=== PATIENT | male | born 1970 | race Caucasian/White ===

== ENCOUNTER 2017-12-05 10:08 | Outpatient (CLI) | payer OTHER | END 2017-12-05 10:09 | disposition home or self-care (01) | LOC: CTENTCT 10:08 | PROVIDERS: ATTEND Otolaryngology Plastic Surgery within the Head & Neck | DX: J01.91 Acute recurrent sinusitis, unspecified (principal) | CPT/HCPCS: 70486 ==

== ENCOUNTER 2017-12-21 07:14 | Day surgery (SDC) | payer OTHER ==
[2017-12-20 13:20] VITALS: BMI 26.5
[2017-12-21] MEDS ORDERED: Oxymetazoline HCl 0.05% ( 15 ML ) ONE (08:22)
[2017-12-21] MEDS ORDERED: Ondansetron HCl/PF 4 MG/2 ML Vial ONE ×2 (09:09→12:10)
[2017-12-21] MEDS ORDERED: Midazolam HCl 2 mg/2 ml Vial ONE (09:09)
[2017-12-21] MEDS ORDERED: Fentanyl 100 MCG/2 ML VIAL ONE ×2 (09:09→10:07)
[2017-12-21] MEDS ORDERED: Bacitracin Zinc Ointment 30 gm TUBE ONE (09:14)
[2017-12-21] MEDS ORDERED: Lidocaine 1% w/Epinephrine 1:200K 30 ML VIAL ONE (09:14)
[2017-12-21] MEDS ORDERED: Dexamethasone 20 MG/5 ML VIAL ONE (12:10)
[2017-12-21] MEDS ORDERED: Succinylcholine Chloride 20 MG/ML 10 ml SYRINGE FS ONE (12:10)
[2017-12-21] MEDS ORDERED: Lidocaine 1% PF 5 ML VIAL ONE (12:10)
[2017-12-21] MEDS ORDERED: PROPOFOL 200 MG/20 ML VIAL ONE (12:10)
--- NOTE | 2017-12-21 20:34 | EKG ---
Test Reason : PREOP Blood Pressure : / mmHG Vent. Rate : 056 BPM Atrial Rate : 056 BPM P-R Int : 180 ms QRS Dur : 104 ms QT Int : 420 ms P-R-T Axes : 047 054 046 degrees QTc Int : 405 ms Sinus bradycardia Nonspecific ST abnormality Abnormal ECG No previous ECGs available Confirmed by DR. Dani TIDWELL MD ([id number]) on 12/21/2017 8:33:55 PM Referred By: ALAN Confirmed By:DR. Dani TIDWELL MD
--- NOTE | 2017-12-22 11:51 | OP ---
PREOPERATIVE DIAGNOSES: 1. Recurrent acute rhinosinusitis. 2. Nasal septal deviation. 3. Bilateral manolo bullosa. 4. Chronic rhinosinusitis. POSTOPERATIVE DIAGNOSES: 1. Recurrent acute rhinosinusitis. 2. Nasal septal deviation. 3. Bilateral manolo bullosa. 4. Chronic rhinosinusitis. PROCEDURES: 1. Bilateral endoscopic sinus surgery, total ethmoidectomies. 2. Bilateral endoscopic sinus surgery, maxillary antrostomies. 3. Bilateral endoscopic sinus surgery, frontal sinusotomies. 4. Bilateral endoscopic sinus surgery, sphenoidotomies. 5. Nasal septoplasty. 6. Bilateral inferior turbinate submucosal resection. SURGEON: Ezra Meyers M.D. ESTIMATED BLOOD LOSS: 50 mL COMPLICATIONS: None. ANESTHESIA: GETA. PROCEDURE IN DETAIL: Patient was taken to the operating room and placed supine on the table. General endotracheal anesthesia was obtained by the Anesthesia staff. Tube was secured in the left lower lip. Patient was then placed in the beach chair position, and Afrin pledgets were p laced in the nasal cavity. Injections of 1% lidocaine with 1:100,000 epinephrine were made into the [place] septum as well as the inferior turbinates. Patient was then prepped and draped in standard surgi omer fashion for nasal surgery. Following this, the Afrin pledgets were removed. A [place] incision wa s made on the left nasal septum. Submucoperichondrial dissection was performed. The deviated portions of the septum included portions of the cartilage and the bony septum. These isolated areas were kali jc using three cutting rongeurs. There was noted to be a large dorsal and caudal strut, left intact for support of the nose. The mucoperichondrial flaps were then reapproximated using a 4-0 gut stitch. Any straight pieces of cartilage were crushed prior to this and placed between the mucoperichondrial flaps. Following this, the inferior turbinates were then punctured with a submucosal coblation wand, and submucosal coblations were performed of multiple areas of the inferior portion of the anterior i nferior turbinate. Please note that the microdebrider was used to submucosally resect the anterior inferior portions of the inferior turbinates. Following this, the inferior turbinates were laterally fractured with a Wallace er elevator. Following this, the 0 degree scope was advanced in the middle meatus and middle turbina sharon were gently medialized using a [place] elevator and uncinate process was then anteriorly fractured with the ball-ended probe and then the uncinate was removed bilaterally using this upbiting [place] forceps and the straight microdebrider. Following this, the ball-ended probe was then used to gentl y palpate and identify the natural maxillary sinus ostia. This ostia was then widened using the curv ed microdebrider bilaterally. Following this, the ethmoidal bulla was identified and was punctured o n its medial and inferior aspect bilaterally and was removed using the microdebrider and upbiting [place] forceps. Following this, the grand lamella was identified and was punctured into the posterio r ethmoidal cells. Working from posterior to anterior, the ethmoidal cells were opened in a mucosal- sparing technique. Following this, the sphenoid sinus was identified staying just medial to the supe rior turbinate and the sphenoidotomies were clamped using Guerra tip suction bilaterally and then wi dened using the microdebrider bilaterally on the medial and inferior direction. Following this, 45-d egree scope and the 40-degree microdebrider blade was then used to further open the frontal recess ce lls as well as frontal as well as identify the frontal sinus ostia, which was then widened with the m icrodebrider. Following this, the nasal cavity was irrigated. MeroPacks were placed. Tong splints were placed and secured. The oral cavity was then gently retracted. The excessively long uvula was then trimmed flush with the soft palate ensuring adequate length of the palate to the posterior phar yngeal wall and mucosal edges were then approximated using a 3-0 chromic gut stitch. The patient suzette erated the procedure well.
== END 2017-12-21 12:28 | disposition home or self-care (01) ==
LOC: SDC 07:14
PROVIDERS: ATTEND Otolaryngology Plastic Surgery within the Head & Neck
PROC: 09TU8ZZ Resection of Right Ethmoid Sinus, Via Natural or Artificial Opening Endoscopic (ICD-10-PCS; principal; 2017-12-21)
PROC: 09BM0ZZ Excision of Nasal Septum, Open Approach (ICD-10-PCS; principal; 2017-12-21)
PROC: 099W8ZZ Drainage of Right Sphenoid Sinus, Via Natural or Artificial Opening Endoscopic (ICD-10-PCS; principal; 2017-12-21)
PROC: 099Q8ZZ Drainage of Right Maxillary Sinus, Via Natural or Artificial Opening Endoscopic (ICD-10-PCS; principal; 2017-12-21)
PROC: 099S8ZZ Drainage of Right Frontal Sinus, Via Natural or Artificial Opening Endoscopic (ICD-10-PCS; principal; 2017-12-21)
PROC: 09TV8ZZ Resection of Left Ethmoid Sinus, Via Natural or Artificial Opening Endoscopic (ICD-10-PCS; principal; 2017-12-21)
PROC: 099T8ZZ Drainage of Left Frontal Sinus, Via Natural or Artificial Opening Endoscopic (ICD-10-PCS; principal; 2017-12-21)
PROC: 099X8ZZ Drainage of Left Sphenoid Sinus, Via Natural or Artificial Opening Endoscopic (ICD-10-PCS; principal; 2017-12-21)
PROC: 099R8ZZ Drainage of Left Maxillary Sinus, Via Natural or Artificial Opening Endoscopic (ICD-10-PCS; principal; 2017-12-21)
DX: J01.81 Other acute recurrent sinusitis (principal); J32.8 Other chronic sinusitis; J34.2 Deviated nasal septum; J34.89 Other specified disorders of nose and nasal sinuses; G47.33 Obstructive sleep apnea (adult) (pediatric); K13.79 Other lesions of oral mucosa; J34.3 Hypertrophy of nasal turbinates
CPT/HCPCS: 93005; 93010; J2250; J2405; J3010

== ENCOUNTER 2023-05-24 11:58 | Inpatient (IN) | payer BC, OTHER ==
[2023-05-24] MEDS ORDERED: Ipratropium/Albuterol 3 ML NEB ONE ×3 (12:47→13:52)
[2023-05-24] MEDS ORDERED: predniSONE 20 MG TAB ONE (12:59)
[2023-05-24] MEDS ORDERED: Dexamethasone 10 MG/ML VIAL ONE (13:42)
[2023-05-24] MEDS ORDERED: Albuterol 2.5 MG/0.5 ML NEB ONE (13:52)
[2023-05-24 13:59] LABS: #Basophils 0.1 thou/uL (0.0-0.2); #Eosinphils 1.3 thou/uL (0.0-0.7); #Monocytes 0.6 thou/uL (0.11-0.59); #Neutrophils 5.3 thou/uL (1.40-6.50); %Basophils 0.6 % (0.0-1.0); %Eosinophils 14.3 % (0.0-10.0); %Lymphocytes 18.7 % (21.0-51.0); %Monocytes 6.3 % (0.0-10.0); %Neutrophils 59.8 % (42.0-75.0); Hemoglobin 18.2 g/dL (14.0-18.0); Mean Corpuscular HGB CONC 33.1 g/dL (32.0-36.0); Mean Corpuscular Hemoglobin 29.5 pg (27.0-31.0); Mean Corpuscular Volume 89.1 fl (78.0-98.0); Mean Platelet Volume 9.9 fL (7.4-10.4); Platelet Count 236 10x3/uL (130-400); RBC Distribution Width 12.9 % (11.5-14.5); Red Blood Cell (RBC) Count 6.17 mill/uL (4.70-6.10); White Blood Cell (WBC) Count 8.8 10x3/uL (4.8-10.8)
[2023-05-24] MEDS ORDERED: Magnesium Sulfate 1 GM, Admixture Fee 1 EACH in Sodium Chloride 0.9% 100 ML IVPB SCH (14:00)
[2023-05-24 14:26] LABS: ALT (SGPT) 24 U/L (8-55); AST (SGOT) 17 U/L (5-34); Albumin 5.5 g/dL (3.5-5.0); Alkaline Phosphatase 79 U/L (40-110); Anion Gap 15 mmol/L (10-20); BUN (Urea Nitrogen) 14 mg/dL (8.4-25.7); Calc. Creatinine Clearance 0 mL/min (70-130); Calcium 10.3 mg/dL (7.8-10.44); Carbon Dioxide 27 mmol/L (22-29); Chloride 106 mmol/L (98-107); Estimated GFR 73; Globulin 2.7 g/dL (2.4-3.5); Glucose 125 mg/dL (70-105); Potassium 4.1 mmol/L (3.5-5.1); Protein, Total 8.2 g/dL (6.0-8.3); Sodium 144 mmol/L (136-145)
[2023-05-24 14:31] LABS: Troponin I 0.011 ng/mL (< 0.028)
[2023-05-24] MEDS ORDERED: EPINEPHrine 1 MG/ML AMP ONE (14:39)
[2023-05-24] MEDS ORDERED: Ketamine In 0.9 % NaCl 50 MG/5 ML SYRINGE ONE ×2 (14:46→14:51)
[2023-05-24] MEDS ORDERED: diphenhydrAMINE 50 MG/ML VIAL ONE (14:55)
[2023-05-24] MEDS ORDERED: Propofol 1,000 MG/100 ML VIAL IV ONE (15:15)
[2023-05-24 15:51] LABS: Bilirubin Negative (Negative); Blood, Urine Negative (Negative); CAUTI Indications for Culture Fever or rigors; Clarity Clear (Clear); Glucose, Urine (Dipstick) Normal (Negative); Ketone, Urine 10 mg/dL (Negative); Leukocyte Negative Leu/uL (Negative); Nitrite Negative (Negative); Protein, Urine (Dipstick) Negative (Neg-Trace); RBC/HPF 0-3 HPF (0-3); Specific Gravity, Urine 1.025 (1.002-1.036); Squamous Epithelial 0-3 HPF (0-3); Urobilinogen Normal mg/dL (Less than 2); WBC/HPF 0-3 HPF (0-3)
[2023-05-24 15:57] LABS: Analyzer IN Cardio ER; Base Excess (BEa) -8.3 mEq/L (-2.0 to +3.0); CO2 Tension 57.6 mmHg (35.0-45.0); Calcium, Ionized (arterial) 1.22 mmol/L (1.12-1.30); Carboxyhemoglobin (COHb) 0.2 gm% (0.0-3.0); Hematocrit-ABG 51 % (42.0-52.0); Hemoglobin (Hb) 17.3 g/dL (14.0-18.0); O2 Tension (PaO2), arterial 495.8 mmHg (80.0-100.0); Potassium - ABG Lab 4.01 mmol/L (3.70-5.30)
[2023-05-24 15:58] LABS: Bacteria/HPF 1+ HPF (None Seen)
[2023-05-24 15:59] LABS: Urine Culture Reflex No No
[2023-05-24 16:04] LABS: pH, Arterial 7.179 (7.35-7.45)
[2023-05-24 16:05] LABS: Puncture Site RBA
[2023-05-24] MEDS ORDERED: fentaNYL 50 mcg/mL 1 mL Vial ONE ×2 (16:19→16:33)
[2023-05-24] MEDS ORDERED: Acetaminophen 650 MG Suppository PR PRN (16:36)
[2023-05-24] MEDS ORDERED: Ventilator Sedation Protocol 1 EACH FS SCH (16:36)
[2023-05-24] MEDS ORDERED: Acetaminophen 325 MG/10.15 ML UDCUP PO PRN (16:39)
[2023-05-24] MEDS ORDERED: Electrolyte Replacement Protocol 1 EACH IVPB SCH (16:39)
[2023-05-24] MEDS ORDERED: Fentanyl CADD 100 ML IV SCH ×2 (16:45→17:00)
[2023-05-24] MEDS ORDERED: Propofol BOLUS 1,000 MG/100 ML VIAL IV PRN (17:00)
[2023-05-24] MEDS ORDERED: Lorazepam 2 MG/ML VIAL SLOW IVP PRN (17:00)
[2023-05-24] MEDS ORDERED: Morphine 2 MG/ML VIAL SLOW IVP PRN (17:00)
[2023-05-24] MEDS ORDERED: Propofol 1,000 MG/100 ML VIAL IV PRN (17:00)
[2023-05-24] MEDS ORDERED: DISCONTINUE PREVIOUS NARCOTIC PAIN MEDICATIONS AND BENZODIAZEPINES FS SCH (17:00)
[2023-05-24] MEDS ORDERED: Fentanyl BOLUS 250 ML IVPB PRN (17:00)
[2023-05-24] MEDS ORDERED: Midazolam HCl 2 mg/2 ml Vial ONE (17:09)
[2023-05-24] MEDS ORDERED: Sterile Water 10 ML ONE ×2 (17:41→23:15)
[2023-05-24] MEDS ORDERED: Vecuronium 10 MG VIAL ONE (17:41)
[2023-05-24] MEDS: Vecuronium 10 MG VIAL IV PRN ×2 (17:42→23:20)
[2023-05-24 18:21] LABS: Troponin I Less than 0.010 ng/mL (< 0.028)
[2023-05-24] MEDS ORDERED: Ipratropium/Albuterol 3 ML NEB NEB SCH (18:30)
[2023-05-24] MEDS ORDERED: hydrALAZINE 20 MG/ML VIAL SLOW IVP PRN (18:36)
[2023-05-24] MEDS ORDERED: Sodium Chloride 0.9% 1,000 ML IV SCH (18:45)
[2023-05-24] MEDS: methylPREDNISolone Sod Succ 40 MG VIAL IVP SCH ×2 (19:13→23:27)
[2023-05-24 20:04] LABS: Troponin I Less than 0.010 ng/mL (< 0.028)
[2023-05-24] MEDS: Pantoprazole 40 MG VIAL IVP SCH (20:31)
[2023-05-24] MEDS ORDERED: Ipratropium/Albuterol 3 ML NEB NEB PRN (20:38)
[2023-05-24] MEDS ORDERED: Famotidine 20 MG TAB PO SCH (21:00)
[2023-05-24] MEDS ORDERED: Famotidine/PF 20 mg/2ml Vial SLOW IVP SCH (21:00)
[2023-05-24] MEDS: Sodium Chloride 0.9% 500 ML IV SCH ×2 (21:02→21:08)
[2023-05-24] MEDS: Sodium Chloride 0.9% 1,000 ML IV SCH ×2 (21:03→21:08)
[2023-05-24] MEDS ORDERED: Sodium Chloride 0.9% 500 ML IV SCH (21:45)
[2023-05-24] MEDS: Ipratropium/Albuterol 3 ML NEB NEB SCH (22:45)
[2023-05-25 00:09] LABS: Actual Bicarbonate (HCO3a) 19.2 mEq/L (22-28); Base Excess (BEa) -8.4 mEq/L (-2.0 to +3.0); CO2 Tension 47.2 mmHg (35.0-45.0); Calcium, Ionized (arterial) 1.21 mmol/L (1.12-1.30); Carboxyhemoglobin (COHb) 0.7 gm% (0.0-3.0); Hematocrit-ABG 44 % (42.0-52.0); O2 Tension (PaO2), arterial 98.9 mmHg (80.0-100.0); Puncture Site RR; pH, Arterial 7.227 (7.35-7.45)
[2023-05-25] MEDS: Ipratropium/Albuterol 3 ML NEB NEB SCH ×8 (02:02→23:07)
[2023-05-25] MEDS: methylPREDNISolone Sod Succ 40 MG VIAL IVP SCH ×3 (05:34→19:18)
[2023-05-25] MEDS: Sodium Chloride 0.9% 1,000 ML IV SCH ×2 (05:34→13:52)
[2023-05-25 06:35] LABS: #Monocytes 0.5 thou/uL (0.11-0.59); #Neutrophils 8.5 thou/uL (1.40-6.50); %Lymphocytes 4.7 % (21.0-51.0); %Monocytes 5.1 % (0.0-10.0); %Neutrophils 89.9 % (42.0-75.0); Hematocrit 46.9 % (42.0-52.0); Mean Corpuscular HGB CONC 32.2 g/dL (32.0-36.0); Mean Corpuscular Hemoglobin 29.3 pg (27.0-31.0); Mean Corpuscular Volume 91.1 fl (78.0-98.0); Mean Platelet Volume 10.1 fL (7.4-10.4); Platelet Count 177 10x3/uL (130-400); RBC Distribution Width 13.2 % (11.5-14.5); Red Blood Cell (RBC) Count 5.15 mill/uL (4.70-6.10); White Blood Cell (WBC) Count 9.4 10x3/uL (4.8-10.8)
[2023-05-25 06:51] LABS: Hemoglobin 15.1 g/dL (14.0-18.0)
[2023-05-25 07:19] LABS: ALT (SGPT) 17 U/L (8-55); AST (SGOT) 13 U/L (5-34); Albumin 4.3 g/dL (3.5-5.0); Alkaline Phosphatase 60 U/L (40-110); Anion Gap 13 mmol/L (10-20); BUN (Urea Nitrogen) 23 mg/dL (8.4-25.7); Bilirubin, Total 0.6 mg/dL (0.2-1.2); Calc. Creatinine Clearance 67 mL/min (70-130); Calcium 8.7 mg/dL (7.8-10.44); Carbon Dioxide 22 mmol/L (22-29); Chloride 106 mmol/L (98-107); Estimated GFR 60; Globulin 2.1 g/dL (2.4-3.5); Glucose 156 mg/dL (70-105); Magnesium 2.1 mg/dL (1.6-2.6); Potassium 5.1 mmol/L (3.5-5.1); Protein, Total 6.4 g/dL (6.0-8.3); Sodium 136 mmol/L (136-145)
[2023-05-25 08:29] LABS: Actual Bicarbonate (HCO3a) 23.1 mEq/L (22-28); Base Excess (BEa) -2.9 mEq/L (-2.0 to +3.0); Calcium, Ionized (arterial) 1.23 mmol/L (1.12-1.30); Carboxyhemoglobin (COHb) 0.7 gm% (0.0-3.0); Hematocrit-ABG 42 % (42.0-52.0); Hemoglobin (Hb) 14.3 g/dL (14.0-18.0); O2 Tension (PaO2), arterial 88.9 mmHg (80.0-100.0); Potassium - ABG Lab 4.76 mmol/L (3.70-5.30); pH, Arterial 7.329 (7.35-7.45)
[2023-05-25 08:30] LABS: Puncture Site RRA
[2023-05-25] MEDS: Pantoprazole 40 MG VIAL IVP SCH ×2 (09:42→20:01)
[2023-05-25] MEDS ORDERED: Piperacillin/Tazobactam 3.375 GM in Sodium Chloride 0.9% 100 ML IVPB SCH (11:15)
[2023-05-25] MEDS: Azithromycin 500 MG in Sodium Chloride 0.9% 250 ML 250 ML IVPB SCH (13:53)
[2023-05-25] MEDS: Piperacillin/Tazobactam 3.375 GM in Sodium Chloride 0.9% 100 ML IVPB SCH (17:20)
[2023-05-26] MEDS: Piperacillin/Tazobactam 3.375 GM in Sodium Chloride 0.9% 100 ML IVPB SCH ×3 (00:19→15:29)
[2023-05-26] MEDS: methylPREDNISolone Sod Succ 40 MG VIAL IVP SCH ×2 (00:19→06:17)
[2023-05-26] MEDS: Ipratropium/Albuterol 3 ML NEB NEB SCH ×4 (01:18→10:56)
[2023-05-26 06:04] LABS: #Monocytes 0.2 thou/uL (0.11-0.59); #Neutrophils 8.8 thou/uL (1.40-6.50); %Lymphocytes 3.8 % (21.0-51.0); %Monocytes 2.5 % (0.0-10.0); %Neutrophils 93.4 % (42.0-75.0); Hematocrit 40.4 % (42.0-52.0); Hemoglobin 13.5 g/dL (14.0-18.0); Mean Corpuscular HGB CONC 33.4 g/dL (32.0-36.0); Mean Corpuscular Hemoglobin 29.7 pg (27.0-31.0); Mean Platelet Volume 10.4 fL (7.4-10.4); Platelet Count 150 10x3/uL (130-400); RBC Distribution Width 13.1 % (11.5-14.5); Red Blood Cell (RBC) Count 4.54 mill/uL (4.70-6.10); White Blood Cell (WBC) Count 9.5 10x3/uL (4.8-10.8)
[2023-05-26 06:29] LABS: ALT (SGPT) 16 U/L (8-55); AST (SGOT) 17 U/L (5-34); Albumin 3.8 g/dL (3.5-5.0); Alkaline Phosphatase 55 U/L (40-110); Anion Gap 10 mmol/L (10-20); BUN (Urea Nitrogen) 21 mg/dL (8.4-25.7); Bilirubin, Total 0.5 mg/dL (0.2-1.2); Calc. Creatinine Clearance 84 mL/min (70-130); Calcium 8.7 mg/dL (7.8-10.44); Carbon Dioxide 25 mmol/L (22-29); Chloride 109 mmol/L (98-107); Estimated GFR 80; Globulin 1.8 g/dL (2.4-3.5); Glucose 146 mg/dL (70-105); Potassium 4.1 mmol/L (3.5-5.1); Protein, Total 5.6 g/dL (6.0-8.3); Sodium 140 mmol/L (136-145)
[2023-05-26 08:02] VITALS: BMI 24.2
[2023-05-26 08:53] VITALS: BP 139/80; TEMP 97.3
[2023-05-26] MEDS: Pantoprazole 40 MG VIAL IVP SCH (08:53)
[2023-05-26] MEDS: Sodium Chloride 0.9% 1,000 ML IV SCH (09:00)
[2023-05-26] MEDS ORDERED: Montelukast Sodium 10 mg Tablet PO SCH (10:45)
[2023-05-26] MEDS ORDERED: predniSONE 20 MG TAB PO SCH (10:45)
[2023-05-26] MEDS: Azithromycin 500 MG in Sodium Chloride 0.9% 250 ML 250 ML IVPB SCH (11:11)
[2023-05-26] MEDS ORDERED: Ipratropium/Albuterol 3 ML NEB NEB SCH (14:30)
[2023-05-27] MEDS ORDERED: Montelukast Sodium 10 mg Tablet PO SCH (09:00)
[2023-05-27] MEDS ORDERED: predniSONE 20 MG TAB PO SCH (09:00)
[2023-05-28] MEDS ORDERED: FLU VACC QS2023-24(6MOS UP)/PF 60 MCG/0.5 ML SYRINGE IM ONE (09:00)
== END 2023-05-26 16:10 | disposition home or self-care (01) | DRG 208 ==
LOC: ERS 11:58 → CCU 16:39 → SURG A 05-25 22:11
PROVIDERS: ADMIT Internal Medicine; ATTEND Internal Medicine
PROC: 4A133R1 Monitoring of Arterial Saturation, Peripheral, Percutaneous Approach (ICD-10-PCS; principal; 2023-05-24)
PROC: 5A1935Z Respiratory Ventilation, Less than 24 Consecutive Hours (ICD-10-PCS; 2023-05-24)
PROC: 0BH17EZ Insertion of Endotracheal Airway into Trachea, Via Natural or Artificial Opening (ICD-10-PCS; 2023-05-24)
DX: J96.01 Acute respiratory failure with hypoxia (principal); N17.9 Acute kidney failure, unspecified; J45.901 Unspecified asthma with (acute) exacerbation; J96.02 Acute respiratory failure with hypercapnia; K21.9 Gastro-esophageal reflux disease without esophagitis; I12.9 Hypertensive chronic kidney disease with stage 1 through stage 4 chronic kidney disease, or unspecified chronic kidney disease; N18.2 Chronic kidney disease, stage 2 (mild); Z82.49 Family history of ischemic heart disease and other diseases of the circulatory system; Z78.1 Physical restraint status
CPT/HCPCS: 31500; 36415; 36416; 36600; 51702; 71045; 74018; 80053; 81001; 82805; 83735; 84484; 85025; 93005; 94002; 94003; 94640; 94644; 94660; 96365; 96366; 96367; 96375; 96376; 99292; C9113; J0171; J0456; J1100; J1200; J1650; J2060; J2250; J2543; J2704; J2920; J3010; J3475; J3490; J7050; J7512; J7611; J7620

== ENCOUNTER 2024-07-04 07:32 | Outpatient (CLI) | payer OTHER | END 2024-07-04 07:33 | disposition home or self-care (01) | LOC: BICCT 07:32 | PROVIDERS: ATTEND Family Medicine | DX: E78.2 Mixed hyperlipidemia (principal); Z82.49 Family history of ischemic heart disease and other diseases of the circulatory system; I70.90 Unspecified atherosclerosis | CPT/HCPCS: 75571 ==